=== PATIENT | female | born 1970 | race Two or more races ===

== ENCOUNTER 2021-12-16 10:53 | Day surgery (SDC) | payer OTHER, SELFPAY ==
[2021-12-10 15:05] VITALS: BMI 32.5
--- NOTE | 2021-12-15 14:10 | HO.ANESPROP2 ---
Documented by User: Tricia Thayer NP 12/15/21 14:16 HPI - Anesthesia Eval Consult details Narrative: 51yo F for Colonoscopy [facility] Past Medical History Medical History (Updated 12/10/21 @ 15:08 by Yulissa Thompson RN) No pertinent past medical history Surgical History Surgical History (Updated 12/10/21 @ 15:04 by Yulissa Thompson RN) Hx of abdominoplasty Hx of hernia repair Hx of reduction mammoplasty Social History Social History Patient Tobacco Use Status: Never used Tobacco Use of substances other than those prescribed or required for medical reasons: No Are you DNR?: No Advance Directives: No Advance Directives Information Provided: Yes Meds Allergies Allergy/AdvReac Type Severity Reaction Status Date / Time Penicillins Allergy Intermediate Rash Verified 12/10/21 15:05 sulfamethoxazole Allergy Intermediate Rash Verified 12/10/21 15:05 [From Bactrim] trimethoprim [From Bactrim] Allergy Intermediate Rash Verified 12/10/21 15:05 Home Medications Medication Instructions Recorded Confirmed Last Taken Type No Known Home Meds 12/10/21 12/10/21 Unknown History Exam Exam Date and Time: December 15, 2021 1410 Height,Weight and Vital Signs: Height 5 ft 8 in Weight 97.069 kg Assessment and Plan Assessment Anesthesia Assessment: Chart Reviewed Documented by User: Nemo De La Torre MD 12/16/21 12:39 [facility] Past Medical History Medical History (Updated 12/10/21 @ 15:08 by Yulissa Thompson RN) No pertinent past medical history Family History Family history of problems with anesthesia: No Surgical History Surgical History (Updated 12/10/21 @ 15:04 by Yulissa Thompson RN) Hx of abdominoplasty Hx of hernia repair Hx of reduction mammoplasty History of Problems with Anesthesia: No Social History Social History Patient Tobacco Use Status: Never used Tobacco Use of substances other than those prescribed or required for medical reasons: No Are you DNR?: No Advance Directives: No Advance Directives Information Provided: Yes Meds Allergies Allergy/AdvReac Type Severity Reaction Status Date / Time Penicillins Allergy Intermediate Rash Verified 12/10/21 15:05 sulfamethoxazole Allergy Intermediate Rash Verified 12/10/21 15:05 [From Bactrim] trimethoprim [From Bactrim] Allergy Intermediate Rash Verified 12/10/21 15:05 Home Medications Medication Instructions Recorded Confirmed Last Taken Type No Known Home Meds 12/10/21 12/10/21 Unknown History Exam Height,Weight and Vital Signs: Height 5 ft 8 in Weight 97.069 kg Vital Signs Temp Pulse Resp BP Pulse Ox O2 Del Method 12/16/21 11:53 97.3 F 64 16 147/88 H 98 Room Air Airway Mallampati Class: I TM Dist: >3cm Neck ROM: Full Loose/Missing/Broken Teeth: No Heart: RRR Lungs: CTAB Assessment and Plan Assessment Anesthesia Assessment: Anesthesia Plan Discussed Final Anesthetic Review Family History of Problems with Anesthesia: No History of Problems with Anesthesia: No NPO: Yes ASA Class: II Final Preanesthetic Review: No Changes in Pt Med Stat, Meds/Allgs Chart Reviewed, Consent Obtained/Reviewed and Anes Risks/Benef Reviewed Patient Risk: Low Procedure Risk: Low Assessment/Block/Sedation in SS: Assess/Block/Sedation-SS Anesthetic Plan Anesthetic Plan: MAC: Disposition: Standard PACU
[2021-12-16 11:53] VITALS: BP 147/88; PULSE 64; RESP 16; TEMP 36.3; O2SAT 98
[2021-12-16] MEDS: Lactated Ringers 1,000 ML 100 ML IVCONT (12:10)
--- NOTE | 2021-12-16 12:32 | MHC.SHP ---
Pre-Procedural Eval Section A Date of Service: 12/16/21 Section B Chief Complaint: screening Details of Present Illness: see H&P no changes Relevant Family History (Specify if Yes): No Relevant Social History: None Present Medications: None Medical History: No relevant PMH Allergies: Allergies Allergy/AdvReac Type Severity Reaction Status Date / Time Penicillins Allergy Intermediate Rash Verified 12/10/21 15:05 sulfamethoxazole Allergy Intermediate Rash Verified 12/10/21 15:05 [From Bactrim] trimethoprim [From Bactrim] Allergy Intermediate Rash Verified 12/10/21 15:05 Review of Systems Sugical H&P ROS: Negative: Constitution, Cardiovascular, Respiratory, Neurological, Psychiatric, Hem-Onc, Allergic/Immunologic, Gastrointestinal, Genitourinary, Musculoskeletal, Integumentary, Endocrine and Eyes/Ears/Nose/Throat Exam Surgical H&P Exam: Normal: HEENT, Normal: Heart, Normal: Lungs, Normal: Extremities, Normal: Abdomen, Normal: Skin and Normal: Neurological Plan Diagnosis/Plan: Unchanged I have reviewed the history and physical and performed a pertinent physical examination on my patient. No changes have occurred unless specified.
--- NOTE | 2021-12-16 13:19 | PM.OP ---
Brief Operative Note Date of Service: 12/16/21 Pre-op diagnosis: screening Post-op diagnosis: same Procedure: colonosocpy Surgeon: Melquiades Stroud Anesthesia: MAC Was an Senior Office Assistant used for this Procedure?: No Estimated blood loss (mL): 2 Pathology: other Condition: stable Disposition: PACU
[2021-12-16 13:21] VITALS: BP 116/74; PULSE 68; RESP 16; TEMP 36.4; O2SAT 99
[2021-12-16 13:36] VITALS: BP 141/86; PULSE 69; RESP 16; TEMP 36.4; O2SAT 100
--- NOTE | 2021-12-16 23:49 | OP_ITS ---
SURGEON: Melquiades Stroud MD INDICATIONS: Colon cancer screening. PREOPERATIVE DIAGNOSIS: POSTOPERATIVE DIAGNOSIS: PROCEDURE PERFORMED: ESTIMATED BLOOD LOSS: COMPLICATIONS: ANESTHESIA: ASSISTANTS: SPECIMENS: PROCEDURE: Colonoscopy to the terminal ileum with snare polypectomy. MEDICATIONS: Monitored anesthesia care. DESCRIPTION OF PROCEDURE: History and physical performed. The risks and benefits of the procedure were explained to the patient. Informed consent was obtained. The patient was placed in the left lateral decubitus position. A digital rectal exam was performed and was found to be normal. The Olympus pediatric video colonoscope was introduced into the rectum and advanced to the cecum without difficulty. The cecum was identified by transillumination, palpation, and identification of ileocecal valve. Examination was performed. The scope was removed. She tolerated the procedure well and was taken to recovery area in stable condition. FINDINGS: The terminal ileum was normal. The visualized colonic mucosa was normal. There was melanosis coli present throughout the colon at 35 cm. From the anal verge, was a 10 mm polyp, which was removed with a snare and recovered with the colonoscope. No other polyps were identified. There was some liquid stool and undigested seed material present which did limit the sensitivity examination for detection of small polyps. This was washed and suctioned. No other polyps were identified. Retroflexed examination was normal. IMPRESSION: Colon polyp. RECOMMENDATIONS: Follow up biopsy results. MD SHELLEY Carrera/ISELA / [id number]
== END 2021-12-16 13:59 | disposition home or self-care (01) ==
PROVIDERS: PCP Internal Medicine; Visit Provider Internal Medicine Gastroenterology
PROC: 0DJD8ZZ Inspection of Lower Intestinal Tract, Via Natural or Artificial Opening Endoscopic (ICD-10-PCS; CPT 45378; principal; 2021-12-16 12:10)
DX: Z12.11 Encounter for screening for malignant neoplasm of colon (principal); D12.5 Benign neoplasm of sigmoid colon; K63.89 Other specified diseases of intestine; Z88.0 Allergy status to penicillin; Z88.2 Allergy status to sulfonamides; Z98.890 Other specified postprocedural states
CPT/HCPCS: 45385; 88305

== ENCOUNTER 2023-12-18 09:41 | Outpatient (REF) | payer OTHER, SELFPAY ==
[2023-12-18 10:08] LABS: Hematocrit 35.1 % (37.0-47.0); Hemoglobin 10.9 g/dl (12.0-16.0); Mean Corpuscular HGB Conc 31.1 g/dl (31.0-35.0); Mean Corpuscular Hemoglobin 27.5 pg (27.0-33.0); Mean Corpuscular Volume 88.4 fL (80.0-98.0); Mean Platelet Volume 10.3 fL (9.4-12.3); Platelet Count 292 X10*3/uL (160-400); Red Blood Count 3.97 X10*6/uL (4.20-5.50); Red Cell Distribution Width 13.4 % (11.0-16.0)
[2023-12-18 10:56] LABS: Cholesterol 238 mg/dL (<200); Glucose Fasting 100 mg/dL (60-99); HDL Cholesterol 61 mg/dL (>40); LDL Cholesterol Calculated 144 mg/dL (<100); Triglycerides 167 mg/dL (<150)
[2023-12-18 11:12] LABS: Vitamin D 25-OH Total 102.5 ng/mL (>30)
== END 2023-12-18 09:42 | disposition home or self-care (01) ==
LOC: HO.LAB 09:41
PROVIDERS: PCP Internal Medicine; Visit Provider Internal Medicine
DX: Z00.00 Encounter for general adult medical examination without abnormal findings (principal); E78.00 Pure hypercholesterolemia, unspecified; Z13.1 Encounter for screening for diabetes mellitus; E55.9 Vitamin D deficiency, unspecified
CPT/HCPCS: 36415; 80061; 82306; 82947; 85027